=== PATIENT | female | born 1945 | race Caucasian/White ===

== ENCOUNTER 2021-09-12 11:03 | Observation (INO) ==
--- NOTE | 2021-09-12 12:30 | Pre Anesthesia Assessment ---
Date of Service September 12, 2021 Pre Sedation Assessment Vital Signs Temp Pulse Resp BP Pulse Ox 09/12/21 11:34 99.0 F 184 H 18 184/93 H 95 09/12/21 11:30 98.6 F 78 20 184/93 H 96 Cardiovascular RRR, no murmur, no edema Respiratory normal respiratory effort, lungs clear to auscultation Pre-Sedation Airway Assessment Smoking Status: Never smoker Hx Sleep Apnea: No Short, Thick Neck: Yes Thyromental Distance: < 3.5 Finger Breadths Oral Cavity: + WNL Mallampati Class: II ASA: ASA2E NPO Status Date of Last Intake of Fluids: 09/12/21 Time of Last Intake of Fluids: 07:30 Date of Last Intake of Solid Food: 09/12/21 Time of Last Intake of Solid Foods: 07:30 Last Intake of Solids Comment: Had 6 0z of yougurt Procedure Planning Contraindications for Sedation: none Current Medications Reviewed: Yes Notes The planned sedation has been discussed with the patient. Informed Consent was obtained. I have identified the patient, determined the appropriateness of sedation and have assessed the patient immediately prior to the procedure. All medicine(s) and interventions are by my order.
--- NOTE | 2021-09-12 12:30 | History & Physical Bridge Note ---
Date of Service September 12, 2021 History & Physical Bridge Note I have examined the patient, reviewed the History & Physical and in the interval since the performance of the History & Physical I have noted the following changes of clinical significance: no changes noted
[2021-09-12] MEDS ORDERED: LIDOCAINE 1% LOCAL 20 ML VIAL ONE ×2 (13:51→15:18)
[2021-09-12] MEDS ORDERED: DEXTROSE 50% 50 ML SYRINGE IV ONE (13:58)
[2021-09-12] MEDS ORDERED: DEXTROSE 50% 50 ML SYRINGE IV STA (14:01)
[2021-09-12] MEDS ORDERED: MIDAZOLAM HCL 5 MG/ML 1 ML VIAL ONE ×2 (14:17→14:49)
[2021-09-12] MEDS ORDERED: HEPARIN (PORCINE) 1000 UNIT/ML 10 ML (CATH LAB USE ONLY) ONE (14:18)
[2021-09-12] MEDS ORDERED: fentaNYL citrate 100 MCG/2 ML VIAL ONE ×2 (14:18→14:49)
[2021-09-12] MEDS ORDERED: niCARdipine HCL INJ 2.5 MG/ML 10 ML AMP ONE (14:18)
[2021-09-12] MEDS ORDERED: NITROGLYCERIN/D5W 100MCG/ML 20ML SYR ONE (14:23)
[2021-09-12] MEDS ORDERED: diphenhydrAMINE 50 MG/ML VIAL ONE (14:51)
[2021-09-12] MEDS ORDERED: CLOPIDOGREL BISULFATE 300 MG TAB ONE (16:38)
[2021-09-12] MEDS ORDERED: ONDANSETRON INJ 2 MG/ML 2 ML VIAL IV PRN (16:51)
--- NOTE | 2021-09-12 16:51 | Post Anesthesia Assessment ---
Date of Service September 12, 2021 Post Sedation Assessment Vital Signs Temp Pulse Resp BP Pulse Ox 09/12/21 16:30 65 18 185/63 H 95 09/12/21 16:20 67 18 212/75 H 94 09/12/21 11:34 99.0 F 184 H 18 184/93 H 95 09/12/21 11:30 98.6 F 78 20 184/93 H 96 Recovery Score Activity: Moves 4 extremities Respiration: Deep Breath/Cough Circulation: +/-20% PreAnes Value Consciousness: Fully Awake Oxygen Saturation: O2 needed for >90% Post Anesthesia Score: 10 Discharge Sedation Level of Care: Fast Track Phase II Post Sedation Plan On clinical assessment, the patient appears to have tolerated the sedation without complications. Patient is recovering as anticipated. Patient will continue to be monitored by nursing and may be discharged when sedation discharge criteria are met per below protocol. Upon Completions of procedure up to 15 minutes continue every 5 minute vital signs and the P.A.R. score; then discharge to a Phase I or Fast Track to Phase II per the following guidelines: * Discharge Patient to appropriate Phase II area if PAR is 8 or greater or return to pre- procedure baseline. The post - procedure orders will be as directed. * If PAR score is less than 8 or not return to pre-procedure baseline then patient will follow Phase I monitoring till PAR is reached for Phase II. The Phase I may be done in procedure room or may call to secure a Phase I area. * If naloxone or flumazenil are used for reversal, hold in Phase I for continued monitoring from when last reversal dose was given for a minimum of 60 minutes or longer pending the nurse and/or physician discretion of patient condition before discharge to Phase II. Please call the Sedation Physician to re-evaluate and complete post-note for discharge to Phase II area. Do NOT discharge from procedure sedation or Phase 1 until post- sedation evaluation note is complete by procedure /sedation MD Sedation Discharge Instructions to be given to the patient at discharge to home.
[2021-09-12] MEDS ORDERED: NITROGLYCERIN SL 0.4 MG/TAB TAB SL PRN (16:58)
[2021-09-12] MEDS ORDERED: oxyCODONE/ACETAMINOPHEN 10-325 TAB PO PRN (16:58)
[2021-09-12] MEDS ORDERED: SODIUM CHLORIDE 0.9% 1000ML 1,000 ML IV SCH (17:00)
[2021-09-12] MEDS ORDERED: carvediloL 6.25 MG TAB PO SCH (17:00)
[2021-09-12] MEDS ORDERED: CARBOHYDRATES FOR HYPOGLYCEMIA PO PRN (17:03)
[2021-09-12] MEDS ORDERED: DEXTROSE 50% 50 ML SYRINGE IV PRN (17:03)
[2021-09-12] MEDS ORDERED: GLUCAGON FOR INJ 1 MG VIAL SQ PRN (17:03)
[2021-09-12] MEDS ORDERED: GLUCOSE 40% GEL 15 GM TUBE PO PRN (17:03)
[2021-09-12] MEDS ORDERED: PHARMACY GLYCEMIC MGMT CONSULT PRN (17:03)
[2021-09-12] MEDS ORDERED: GLUCOSE 10 TABS/TUBE PO PRN (17:03)
--- NOTE | 2021-09-12 17:22 | Endovascular Procedure Note ---
[facility] Endovascular Procedure Rpt Pre & Post Diagnosis Peripheral arterial disease I identified the patient and participated in the time-out.: Yes Procedure Operation Date: 09/12/21 12:30 Actual Procedures p Angio Extremity Bilateral - MD hafsa Klein Fem Pop Stent Balloon - MD hafsa Klein IVUS Non Cors - MD hafsa Klein Placement Art Occlusive Device - MD hafsa Klein Ultrasound Vascular Access - MD hafsa Klein SC IVUS Noncoronary Initial - MD hafsa Klein Tibioperoneal Balloon Stent - Quan Darby MD Surgeon Chaz Darby MD Block Bolter Mule Operator Sully Koroma Estimated Blood Loss 25 Findings See Below Abdominal aorta--no significant aneurysmal or stenotic disease Right lower extremity-- -Common iliac, external iliac, internal iliac widely patent -FEEDER WORKER POWER UNIT OPERATOR, profunda widely patent -SFA calcified, mild diffuse disease -Popliteal calcified, widely patent -Single-vessel runoff to the foot via peroneal. OWEN occluded proximally, PT occluded mid segment Left lower extremity-- -Common iliac, external iliac, internal iliac widely patent -FEEDER WORKER POWER UNIT OPERATOR, profunda widely patent -SFA95% mid focal, calcified nodule, 90% focal distal stenosis -Popliteal widely patent -OWEN 95% proximal stenosis, remainder of vessel widely patent the foot -NUB CARD TENDER heavily calcified, severe diffuse disease before distal occlusion. -DPA patent, tapers in mid foot. Minimal angiographic blush to toes, heel. Distal NUB CARD TENDER below the ankle, plantar arteries occluded. Anesthesia Type RN Sedation Radiation Exposure (mGv) Radiation (mGy): 672 Contrast Contrast: 120 Visi Complications none Disposition Accompanied Patient To Recovery: Yes Disposition: Public [employer] Professional Holding Description of Procedure RT FEEDER WORKER POWER UNIT OPERATOR obtained under ultrasound guidance, short 5Fr sheath placed Right lower extremity angiography via FEEDER WORKER POWER UNIT OPERATOR sheath Abdominal aortogram and proximal left lower extremity angiogram performed with RIM catheter. 6 Fr 45 cm destination sheath placed from right FEEDER WORKER POWER UNIT OPERATOR to left SFA, distal lower extremity angiography via sheath. Mid, distal SFA disease crossed with 0.35 glide advantage wire Proximal OWEN stenosis crossed with 0.14 command wire Angioplasty of proximal OWEN with 2.5 and 3.0 balloons with residual focal stenosis Mid/distal SFA disease dilated with 3.0 and 6.0 balloons Mid to distal SFA treated with 6.0 x 150 mm Lutonix drug-eluting balloon [place] IVUS catheter placed into mid anterior tibial artery to assess residual proximal OWEN and mid SFA disease Pullback revealed diffuse heavy calcification. Focal heavily calcified stenosis in proximal OWEN. Eccentric, calcified residual stenosis in mid SFA (residual stenosis >50%) Proximal OWEN stented with 3.0 x 28 mm Xience drug-eluting stent Mid SFA stenosis stented with 6.0 x 40 mm Lifestream self-expanding stent SFA stent postdilated with a 7.0 balloon Post procedure good angiographic result, no evidence of dissection and brisk runoff into the foot via OWEN. Contrast used: 120 Moderate sedation: [id number] Access closure: Angio-Seal Summary: 1. Left lower extremity --95% focal, calcified mid SFA, 90% distal SFA. 95% focal proximal OWEN stenosis. 100% distal NUB CARD TENDER occlusion. DPA patent to midfoot. Remainder of pedal vessels occluded. 2. Right lower extremity --mild diffuse SFA disease. Single-vessel runoff to the foot via peroneal. 3. Successful angioplasty of mid to distal SFA with drug-eluting balloon (Lutonix 6x150) and spot stenting of residual mid SFA stenosis with single self- expanding stent (6 x 40mm). 4. Successful stenting of proximal OWEN with 3.0 x 28 mm Xience drug-eluting stent. Recommendations: Continue dual therapy with apixaban, clopidogrel. Follow-up non-invasive vascular testing in 2 weeks. I attest to the content of the Intraoperative Record and any orders documented therein. Any exceptions are noted below. Vascular Charges Angiography/Venography Procedure 1: Angiography/Venography charges: [id number] Aortography, abd + b/l iliofem LE, catheter, radiological S&I Procedure 2: Angiography/Venography charges: [id number] Initial 3rd order or selective abd, pelvic, or LE branch Lower Extremity Interventions Procedure 1: Lower Extremity Intervention charges: [id number] Stent placement(s), femoral, popliteal artery(s), unilateral Procedure 2: Lower Extremity Intervention charges: [id number] Stent plcmt, tibial, peroneal art, UL, initial vessel Additional Services Procedure 1: Additional Services Charges: 55517 Intravascular ultrasound; initial noncoronary vessel Procedure 2: Additional Services Charges: 49272 Ultrasound guidance - vascular access Procedure 3: Additional Services Charges: 84685 Moderate sedation initial 15 min Procedure 4: Additional Services Charges: 76509 Moderate sedation, each additional 15 min
--- NOTE | 2021-09-12 19:26 | XRay Report ---
XR foot LT 2V HISTORY: 76 years-old Female diabetic foot ulcer, eval osteo acute left foot pain with soft tissue u lcer COMPARISON: None TECHNIQUE: 2 views of the left foot FINDINGS: Arterial calcifications. Mild to moderate multifocal osteoarthritis with spurring of the calcaneus. M ild diffuse soft tissue swelling. No acute fracture, dislocation or osseous erosion identified. IMPRESSION: Soft tissue swelling without acute osseous abnormality. ACT 112: Negative or not required by law. The above report was generated using voice recognition software. It may contain grammatical, syntax o r spelling errors. Electronically signed by: Steve Vidal M.D. 09/12/2021 7:24 PM
[2021-09-12] MEDS: INSULIN ASPART PER UNIT SC SCH ×2 (19:52→20:23)
[2021-09-12] MEDS: GABAPENTIN 300 MG CAP PO SCH (20:28)
[2021-09-12] MEDS: RANOLAZINE 500 MG ER TAB PO SCH (20:29)
[2021-09-12] MEDS: ISOSORBIDE MONO EXTENDED REL 60 MG TABCR PO SCH (20:30)
[2021-09-12] MEDS: MAGNESIUM OXIDE 400 MG TAB PO SCH (20:31)
[2021-09-13 07:38] LABS: Basophils # (auto) 0.01 K/uL (0-0.2); Basophils % (auto) 0.1 %; Eosinophils # (auto) 0.06 K/uL (0-0.5); Eosinophils % (auto) 0.7 %; Hematocrit (blood only) 34.1 % (37-47); Hemoglobin 11.4 g/dL (12.0-16.0); Immature Granulocytes # (auto) 0.01 K/uL (0.00-0.02); Immature Granulocytes % (auto) 0.1 %; Lymphocytes # (auto) 1.96 K/uL (1.2-3.4); Lymphocytes % (auto) 23.2 %; Mean Corpuscular Hemoglobin 29.1 pg (25-34); Mean Corpuscular Hgb Conc 33.4 g/dL (32-36); Monocytes # (auto) 0.46 K/uL (0.11-0.59); Monocytes % (auto) 5.4 %; Neutrophils # (auto) 5.96 K/uL (1.4-6.5); Neutrophils % (auto) 70.5 %; Platelet Count 285 K/uL (130-400); RDW Coefficient of Variation 13.5 % (11.5-14.5); RDW Standard Deviation 43.1 fL (36.4-46.3); Red Blood Count 3.92 M/uL (4.2-5.4); White Blood Count 8.46 K/uL (4.8-10.8)
[2021-09-13 07:55] LABS: C Reactive Protein 1.55 mg/dl (0-0.5); Calcium 8.3 mg/dl (8.5-10.1); Creatinine Clr Calc Pharmacy 97.4 ml/min; Est GFR (African American) 102.6 ml/min; Est GFR (Non-African American) 88.5 ml/min; Potassium 3.7 mmol/L (3.5-5.1); Prealbumin 15.7 mg/dl (20-40)
[2021-09-13] MEDS: MAGNESIUM OXIDE 400 MG TAB PO SCH (08:23)
[2021-09-13] MEDS: ISOSORBIDE MONO EXTENDED REL 60 MG TABCR PO SCH (08:23)
[2021-09-13] MEDS: RANOLAZINE 500 MG ER TAB PO SCH (08:23)
[2021-09-13] MEDS: GABAPENTIN 300 MG CAP PO SCH (08:24)
[2021-09-13] MEDS: INSULIN ASPART PER UNIT SC SCH ×2 (08:27→12:10)
[2021-09-13] MEDS ORDERED: APIXABAN 5 MG TABLET PO SCH (09:00)
[2021-09-13] MEDS ORDERED: CLOPIDOGREL BISULFATE 75 MG TAB PO SCH (09:00)
[2021-09-13] MEDS ORDERED: CHOLECALCIFEROL 5,000 UNITS 125 MCG TAB PO SCH (09:00)
[2021-09-13] MEDS ORDERED: ATORVASTATIN 20 MG TAB PO SCH (09:00)
[2021-09-13] MEDS ORDERED: carvediloL 12.5 MG TAB PO SCH (09:00)
[2021-09-13] MEDS ORDERED: NON-FORMULARY MEDICATION (Coenzyme Q10 100 mg capsule) PO SCH (09:00)
[2021-09-13] MEDS ORDERED: NON-FORMULARY MEDICATION (Insulin Degludec [Tresiba Flextouch U-200] 200 unit/mL (3 mL) in SQ SCH (09:00)
[2021-09-13] MEDS ORDERED: INSULIN GLARGINE SOLOSTAR 100 UNITS/ML 3 ML PEN SC ONE (11:45)
--- NOTE | 2021-09-13 13:03 | Magnetic Resonance Report ---
MR foot LT w/o con CLINICAL HISTORY: Nonhealing diabetic foot ulcer of the left great toe.. COMPARISON: None. TECHNIQUE: Only sagittal multisequence images of the left foot foot were performed without contrast. FINDINGS: This is a limited examination as the patient was unable to complete the exam due to pain. Soft tissues: There appears to be a ulceration along the dorsal surface of the great toe distally. Mi ld edematous changes are seen within the soft tissues at this site. No focal fluid collection is iden tified. Osseous structures:There is evidence for abnormal signal along the dorsal cortical surface of the dis danie phalanx of the great toe. The findings are characteristic of minimal early osteomyelitis at this site. There is mild marrow edema of the distal phalanx. Homogeneous marrow signal is seen throughout the remaining imaged bones of the foot. There is no katelynn dence for marrow edema or marrow replacement. No acute osseous pathology is seen. Joints: The first IP joints and MCP joints are maintained. The remaining IP and MTP joints are intact . The remaining imaged joints of the foot are intact. Tendons: The extensor tendons along the dorsum of the foot and the flexor tendons along the plantar a spect of the foot are intact. Ligaments: The imaged ligaments of the foot are intact. IMPRESSION: 1. Limited examination as the patient was unable to complete the entire study due to pain. 2. MR findings characteristic of minimal early osteomyelitis along the dorsal aspect of the distal ph alanx of the great toe as described. ACT 112: Negative or not required by law. Electronically signed by: Mark Moreno M.D. 09/13/2021 1:01 PM
--- NOTE | 2021-09-19 17:19 | Discharge Summary ---
Date of Service September 19, 2021 Admission HPI Per Admitting Provider Mrs. Yusuf is a 76 year old woman who presents for evaluation of PAD. Medical history significant for insulin dependent type 2 DM, atrial fibrillation on anticoagulation, CAD status post CABG x4 and PCI, dyslipidemia, hypertension. Patient was referred by the [facility] wound care center. She reports left foot ulcers since around February 2021. Initially started as a crack in her left heel that led to a large heel ulcer. More recently (past 1-2 months) developed base of left 5th digit and left great toe ulcers. Wounds are worsening despite routine wound care. She has associated foot pain. She notes increasing discoloration of her foot. In July wound cultures with klebsiella. Was given IV Dalvance and PO Levaquin. Not currently on antibiotics. No recent imaging to assess for osteo. Ambulation has been limited over past several months due to wounds. Prior to that states she was able to perform ADLs and walk around grocery store without limiting claudication. Does report chronic bilateral thigh pain with ambulation she attributes to issues with her back. Denies prior history of peripheral arterial disease. She has a history of coronary disease and underwent coronary artery bypass grafting x4 in 2005. Reports having subsequent PCI as well. Primary conditioning yard supervisor is in [place], cardiology records not currently available. Denies any recent chest pain. No significant dyspnea. She had a CTA at [facility]. Per report severe multifocal atherosclerotic disease but no hemodynamically significant stenosis common iliacs to CRIMINAL JUDGE, SFA widely patent bilaterally, poor evaluation of calf vessels due to atherosclerotic calcification. Noninvasive vascular testing performed in our office today. Left toe pressure undetectable. LLE arterial duplex with monophasic waveforms throughout, left SFA stenosis and significant tibial disease. Social history: Lives with in [place]. No tobacco or alcohol use. Discharge Data Consultations 09/12/21 17:03 Consult Wound Care Provider Routine Procedures Performed Operation Date: 09/12/21 12:30 Actual Procedures p Angio Extremity Bilateral - Quan Darby MD s Fem Pop Stent Balloon - Quan Darby MD s IVUS Non Cors - MD hafsa Klein Placement Art Occlusive Device - MD hafsa Klein Ultrasound Vascular Access - Quan aDrby MD s SC IVUS Noncoronary Initial - MD hafsa Klein Tibioperoneal Balloon Stent - Quan Darby MD Hospital Course (1) Peripheral vascular disease: Patient underwent bilateral lower extremity angiogram via right common femoral artery access. She was found to have multiple severe SFA lesions >90% as well as a 95% focal proximal OWEN stenosis. [employer]/peroneal occluded prior to the ankle. She underwent successful endovascular intervention with angioplasty and drug-eluting balloon to SFA with focal stenting of mid SFA. Also underwent successful stenting of proximal OWEN with drug-eluting stent. Procedure uncomplicated. Admitted for observation post procedure for blood pressure control, pain management. Remained hemodynamically stable for remainder of hospitalization. Post procedure labs stable. On discharge exam no access to complications, diminished DP pulse on left. No signs of active infection. Normal WBC but inflammatory markers were elevated (ESR 48, CRP 1.5). Plain x-ray of left foot showed no bony abnormalities. MRI of foot attempted but study limited due to chronic back pain. Questionable findings of minimal early osteomyelitis along dorsal aspect of distal phalanx of great toe. Surface wound culture with coag negative staph. Discharged off antibiotics. Follow-up as scheduled with Dr. Fortune. Discharged on dual therapy with clopidogrel, Eliquis. Vascular follow-up in 1 to 2 weeks with repeat noninvasive vascular testing. Discharge Instructions Home Medications Saccharomyces boulardii 250 mg capsule (Digest Probiotic (S.boulardii)) 250 mg PO BID 09/11/21 [History Confirmed 09/12/21] apixaban 5 mg tablet (Eliquis) 5 mg PO BID 09/11/21 [History Confirmed 09/12/21] ascorbate calcium (vitamin C) 500 mg tablet 500 mg PO DAILY 09/11/21 [History Confirmed 09/12/21] atorvastatin 20 mg tablet 20 mg PO DAILY 09/11/21 [History Confirmed 09/12/21] beet greens See Rx Instructions PO DAILY 09/11/21 [History Confirmed 09/12/21] bumetanide 1 mg tablet 1 mg PO DAILY PRN 09/11/21 [History Confirmed 09/12/21] carvedilol 12.5 mg tablet 12.5 mg PO .am tab 09/11/21 [History Confirmed 09/12/21] carvedilol 6.25 mg tablet 6.25 mg PO HS tab 09/11/21 [History Confirmed 09/12/21] cholecalciferol (vitamin D3) 125 mcg (5,000 unit) capsule 125 mcg PO DAILY 09/11/21 [History Confirmed 09/12/21] clopidogrel 75 mg tablet (Plavix) 75 mg PO DAILY 09/11/21 [History Confirmed 09/12/21] clotrimazole-betamethasone 1 %-0.05 % topical cream 1 applic TOPICAL BID [History Confirmed 09/12/21] coenzyme Q10 100 mg capsule 100 mg PO DAILY 09/11/21 [History Confirmed 09/12/21] diclofenac sodium 1 % topical gel (Arthritis Pain (diclofenac)) 1 g TOPICAL QID g 09/11/21 [History Confirmed 09/12/21] gabapentin 300 mg capsule 300 mg PO TID cap 09/11/21 [History Confirmed 09/12/21] insulin degludec 200 unit/mL (3 mL) subcutaneous pen (Tresiba FlexTouch U-200 insulin) 80 unit SUBCUT DAILY ml 09/11/21 [History Confirmed 09/11/21] isosorbide mononitrate 60 mg tablet,extended release 24 hr 60 mg PO BID tab 09/11/21 [History Confirmed 09/12/21] liraglutide 0.6 mg/0.1 mL (18 mg/3 mL) subcutaneous pen injector (Victoza 2-Zachery) 1.8 mg SUBCUT DAILY ml 09/11/21 [History Confirmed 09/12/21] magnesium oxide 400 mg (241.3 mg magnesium) tablet (MagOx) 400 mg PO BID tab 09/11/21 [History Confirmed 09/12/21] metformin 500 mg tablet 1,000 mg PO BID tab 09/11/21 [History Confirmed 09/12/21] mupirocin 2 % topical ointment 1 applic TOPICAL BID 09/11/21 [History Confirmed 09/12/21] nitroglycerin 0.4 mg sublingual tablet 0.4 mg SUBLINGUAL Q5M PRN 09/11/21 [History Confirmed 09/12/21] oxycodone-acetaminophen 10 mg-325 mg tablet 1 tab PO TID PRN 09/11/21 [History Confirmed 09/12/21] ranolazine 500 mg tablet,extended release,12 hr 500 mg PO BID 09/11/21 [History Confirmed 09/12/21] resveratrol 250 mg capsule mg PO DAILY cap 09/11/21 [History Confirmed 2] tumeric See Rx Instructions PO DAILY 09/11/21 [History Confirmed 09/12/21] Coding Level of Care Code 79957 OBS Care - Discharge Diagnoses Peripheral vascular disease I73.9
== END 2021-09-13 13:30 | disposition home or self-care (01) ==
LOC: CC 11:03 → EDINP 11:03 → 2S 17:29
PROC: CLB.AEB (2021-09-12 12:30)